=== PATIENT | female | born 1980 | race African-American/Black ===

== ENCOUNTER 2020-03-21 10:59 | Emergency (ER) | payer MEDICARE ==
[2020-03-21 11:46] LABS: Bilirubin Negative (Negative); Blood, Urine Trace (Negative); Clarity Clear (Clear); Glucose, Urine (Dipstick) Negative (Negative); Ketone, Urine Negative (Negative); Leukocyte Negative (Negative); Nitrite Negative (Negative); Protein, Urine (Dipstick) Negative (Neg-Trace); Specific Gravity, Urine 1.025 (1.005-1.030); Urobilinogen 0.2 mg/dL (Less than 2)
[2020-03-21 11:54] LABS: Bacteria/HPF Rare-Few HPF (None Seen); RBC/HPF 0-3 HPF (0-3); WBC/HPF 0-3 HPF (0-3)
[2020-03-21] MEDS ORDERED: HYDROcodone/Acetaminophen 5/325 mg Tablet ONE (12:08)
[2020-03-21] MEDS ORDERED: Sodium Chloride 0.9% 1,000 ML ONE (12:09)
[2020-03-21] MEDS ORDERED: Ondansetron PF 4 MG/2 ML Vial ONE (12:09)
[2020-03-21] MEDS ORDERED: Ondansetron ODT 4 MG TAB ONE (12:38)
--- NOTE | 2020-03-21 12:39 | CT ---
Exam: Abdomen CT without contrast Pelvic CT without contrast HISTORY: Left flank pain COMPARISON: None FINDINGS: Abdomen CT: Lung bases:Clear Heart size: Normal heart size. Trace amount of anterior pericardial fluid Aorta: Caliber Solid organs: Limited evaluation by the lack of IV contrast. Grossly no solid organ abnormality Lymph nodes: No gastrohepatic, retrocrural or periportal lymphadenopathy Gallbladder: Normal caliber Mesentery: No mass, lymphadenopathy, free air or free fluid Kidneys: Bilateral nonobstructing intrarenal calculi. Largest calculus in the left renal pelvis, everett uring 0.6 cm. No evidence of right-sided obstructive uropathy. Mild left-sided obstructive uropathy secondary to a 0.3 cm calculus in the proximal to mid left ureter, at the L3 level. Alimentary canal: Limited evaluation by the lack of oral contrast. No evidence of bowel obstruction. Normal ileocecal junction. Normal caliber appendix. Scattered fecal material in a nondistended, nondilated colon. CT PELVIS: No mass, adenopathy, free air. Trace free fluid. Surgically absent uterus Urinary bladder: Unremarkable. Osseous structures: No lytic or blastic lesions. Internal fixation pins traverse the right hip. IMPRESSION: 1. Mild left-sided obstructive uropathy secondary to a 0.3 cm calculus in the proximal to mid left ur eter.
[2020-03-21 13:19] LABS: #Basophils 0.1 thou/uL (0.0-0.2); #Eosinphils 0.1 thou/uL (0.0-0.7); #Lymphocytes 2.4 thou/uL (1.20-3.40); #Monocytes 0.3 thou/uL (0.11-0.59); #Neutrophils 3.8 thou/uL (1.40-6.50); %Basophils 1.7 % (0.0-1.0); %Eosinophils 1.5 % (0.0-10.0); %Lymphocytes 35.5 % (21.0-51.0); %Monocytes 4.8 % (0.0-10.0); %Neutrophils 56.5 % (42.0-75.0); Hemoglobin 14.4 g/dL (12.0-16.0); Mean Corpuscular HGB CONC 31.2 g/dL (32.0-36.0); Mean Corpuscular Hemoglobin 30.8 pg (27.0-31.0); Mean Corpuscular Volume 98.8 fL (78.0-98.0); Mean Platelet Volume 7.8 fL (7.4-10.4); Platelet Count 416 thou/uL (130-400); RBC Distribution Width 13.4 % (11.5-14.5); Red Blood Cell (RBC) Count 4.66 mill/uL (4.20-5.40); White Blood Cell (WBC) Count 6.8 thou/uL (4.8-10.8)
[2020-03-21 13:44] LABS: ALT (SGPT) 17 U/L (8-55); AST (SGOT) 21 U/L (5-34); Albumin 4.8 g/dL (3.5-5.0); Alkaline Phosphatase 121 U/L (40-110); Anion Gap 21 mmol/L (10-20); BUN (Urea Nitrogen) 8 mg/dL (7.0-18.7); Bilirubin, Total 0.5 mg/dL (0.2-1.2); Calc. Creatinine Clearance 0 mL/min (70-130); Calcium 9.9 mg/dL (7.8-10.44); Carbon Dioxide 21 mmol/L (22-29); Chloride 107 mmol/L (98-107); Estimated GFR-MDRD Greater than 90; Globulin 3.8 g/dL (2.4-3.5); Glucose 76 mg/dL (70-105); Potassium 4.7 mmol/L (3.5-5.1); Pregs Control Background? CLEAR/WHITE (CLR/WHITE); Pregs Control Bar Appear? YES (CONTROL BAR); Protein, Total 8.6 g/dL (6.0-8.3); Sodium 144 mmol/L (136-145)
[2020-03-21 13:58] LABS: BHCG - Serum Indeterminate (NEGATIVE)
== END 2020-03-21 14:05 | disposition home or self-care (01) ==
LOC: MADERS 10:59
DX: N20.1 Calculus of ureter (principal); F41.9 Anxiety disorder, unspecified; F32.9 Major depressive disorder, single episode, unspecified; F17.210 Nicotine dependence, cigarettes, uncomplicated; G89.29 Other chronic pain; Z79.899 Other long term (current) drug therapy; Z86.73 Personal history of transient ischemic attack (TIA), and cerebral infarction without residual deficits
CPT/HCPCS: 36415; 74176; 80053; 81003; 81015; 84703; 85025; J2405; J7050; Q0162

== ENCOUNTER 2020-03-22 17:57 | Emergency (ER) | payer MEDICARE ==
[2020-03-22] MEDS ORDERED: HYDROcodone/Acetaminophen 5/325 mg Tablet ONE (19:00)
== END 2020-03-22 19:05 | disposition home or self-care (01) ==
LOC: MADERS 17:57
DX: N20.0 Calculus of kidney (principal); Z86.73 Personal history of transient ischemic attack (TIA), and cerebral infarction without residual deficits; F41.9 Anxiety disorder, unspecified; F32.9 Major depressive disorder, single episode, unspecified; F17.210 Nicotine dependence, cigarettes, uncomplicated; Z79.899 Other long term (current) drug therapy
CPT/HCPCS: 99283